=== PATIENT | male | born 1940 | race Caucasian/White ===

== ENCOUNTER 2019-10-01 07:02 | Day surgery (SDC) | payer MEDICARE, BC ==
[2019-09-30 12:39] LABS: BASOPHILS % (AUTO) 0.3 % (0-1); EOSINOPHILS # (AUTO) 0.3 X10'3 (0-0.9); HEMATOCRIT 45.2 % (42.0-52.0); HEMOGLOBIN 15.2 g/dl (14.0-17.9); LYMPHOCYTES # (AUTO) 2.8 X10'3 (1.1-4.8); LYMPHOCYTES % (AUTO) 27.1 % (21-51); MEAN CORPUSCULAR HGB CONC 33.6 g/dL (33.0-36.5); MEAN CORPUSCULAR VOLUME 98.2 FL (78-98); MEAN PLATELET VOLUME 9.1 FL (7.4-10.4); MONOCYTES # (AUTO) 0.9 X10'3 (0-0.9); MONOCYTES % (AUTO) 8.4 % (2-12); NEUTROPHILS # (AUTO) 6.4 X10'3 (1.8-7.7); NEUTROPHILS % (AUTO) 61.2 % (42-75); PLATELET COUNT 244 X10'3 (140-440); WHITE BLOOD COUNT 10.4 X10'3 (4.5-11.0)
[2019-09-30 12:50] LABS: ALBUMIN 4.1 G/DL (3.4-5.0); ANION GAP 8 (8-16); BLOOD UREA NITROGEN 15 MG/DL (7-18); BUN/CREATININE RATIO 16.5 (5.4-32.0); CALCIUM 9.2 MG/DL (8.5-10.1); CHLORIDE 103 MMOL/L (99-107); CREATININE 0.91 MG/DL (0.60-1.10); GLUCOSE 93 MG/DL (70-104); POTASSIUM 4.1 MMOL/L (3.5-5.1); SODIUM 139 MMOL/L (135-145); TOTAL CARBON DIOXIDE 27.9 MMOL/L (24-32); eGFR 81 ML/MIN
[2019-09-30 12:54] LABS: PARTIAL THROMBOPLASTIN TIME 28 SECONDS (22-32)
[2019-10-01] VITALS (11 sets, daily range): BP systolic 119–160; BP diastolic 50–75
[~2019-10-01] VITALS: Ht 177.8 cm; Wt 75.6 kg
[2019-10-01] MEDS ORDERED: diphenhydrAMINE 25mg capsule PO PRN (07:15)
[2019-10-01] MEDS ORDERED: LIDOcaine/PRILOcaine 5gm cream TP ONE (07:15)
[2019-10-01] MEDS ORDERED: normal saline 1,000 ML IV SCH (07:15)
[2019-10-01] MEDS ORDERED: acetylcysteine 200 MG/ml 4ml vial PO PRN (07:20)
[2019-10-01] MEDS ORDERED: LORazepam 0.5 MG tablet PO ONE (08:10)
[2019-10-01] MEDS ORDERED: ALBU8.5H8 IH (08:42)
[2019-10-01] MEDS ORDERED: ATOR10TA70 PO (08:42)
[2019-10-01] MEDS ORDERED: FLUT1AER INH (08:42)
[2019-10-01] MEDS ORDERED: PYRI50TA13 PO (08:42)
[2019-10-01] MEDS ORDERED: CHOL100046 PO (08:42)
[2019-10-01] MEDS ORDERED: SERT-153 PO (08:42)
[2019-10-01] MEDS ORDERED: LISI10TA4 PO (08:42)
[2019-10-01] MEDS ORDERED: CYAN100097 PO (08:42)
[2019-10-01] MEDS ORDERED: LANS30CA56 PO (08:42)
[2019-10-01] MEDS ORDERED: nitroGLYCERIN-Tridil 50MG/D5W 250 ML IV ONE (09:52)
[2019-10-01] MEDS ORDERED: midazolam 2 mg/2 ml injection ONE (09:53)
[2019-10-01] MEDS ORDERED: heparin 1,000unit/ml 10ml vial 10 ML ONE (09:53)
[2019-10-01] MEDS ORDERED: LIDOcaine 1% (10mg/ml)w/preservative injection 20ml MDV ONE (09:53)
[2019-10-01] MEDS ORDERED: iohexol 350MG/ML 100ml bottle IV ONE (09:53)
[2019-10-01] MEDS ORDERED: fentaNYL/PF 50MCG/1 ML 2ML syringe ONE (09:53)
[2019-10-01] MEDS ORDERED: iohexol 350 MG/ML 50ML vial IV ONE (09:53)
[2019-10-01] MEDS ORDERED: verapamil 2.5 mg/ml inj IV ONE (09:53)
[2019-10-01] MEDS ORDERED: normal saline 1000ml 1,000 ML IV SCH (11:15)
== END 2019-10-01 15:48 | disposition home or self-care (01) ==
LOC: SSTAY O 07:02
PROVIDERS: ATTEND Internal Medicine Cardiovascular Disease
DX: R94.39 Abnormal result of other cardiovascular function study (principal); R06.02 Shortness of breath; R53.83 Other fatigue; I25.10 Atherosclerotic heart disease of native coronary artery without angina pectoris; I10 Essential (primary) hypertension; E78.5 Hyperlipidemia, unspecified; J44.9 Chronic obstructive pulmonary disease, unspecified; I08.3 Combined rheumatic disorders of mitral, aortic and tricuspid valves; K21.9 Gastro-esophageal reflux disease without esophagitis; Z85.828 Personal history of other malignant neoplasm of skin; Z85.46 Personal history of malignant neoplasm of prostate; Z98.890 Other specified postprocedural states; Z87.891 Personal history of nicotine dependence; Z79.899 Other long term (current) drug therapy
CPT/HCPCS: 36415; 80048; 85025; 85610; 85730; 93005; 93458; 99152; 99153; C1769; C1894; J1644; J2001; J2250; J3010; J7030; Q0163; Q9967; A4620; A5120; J3490

== ENCOUNTER 2020-05-27 06:08 | Day surgery (SDC) | payer MEDICARE, BC ==
[2020-05-26 11:35] LABS: BASOPHILS % (AUTO) 0.4 % (0-1); EOSINOPHILS # (AUTO) 0.3 X10'3 (0-0.9); EOSINOPHILS % (AUTO) 3.8 % (0-6); HEMATOCRIT 42.2 % (42.0-52.0); HEMOGLOBIN 14.1 g/dl (14.0-17.9); LYMPHOCYTES # (AUTO) 2.5 X10'3 (1.1-4.8); MEAN CORPUSCULAR HEMOGLOBIN 31.7 PG (27.0-31.0); MEAN CORPUSCULAR HGB CONC 33.4 g/dL (33.0-36.5); MEAN PLATELET VOLUME 8.8 FL (7.4-10.4); MONOCYTES # (AUTO) 0.6 X10'3 (0-0.9); MONOCYTES % (AUTO) 6.9 % (2-12); NEUTROPHILS # (AUTO) 5.2 X10'3 (1.8-7.7); NEUTROPHILS % (AUTO) 59.9 % (42-75); PLATELET COUNT 187 X10'3 (140-440); RED BLOOD COUNT 4.45 X10'6 (4.70-6.10); RED CELL DISTRIBUTION WIDTH 13.9 % (11.5-14.5); WHITE BLOOD COUNT 8.6 X10'3 (4.5-11.0)
[2020-05-26 11:40] LABS: ALBUMIN 3.9 G/DL (3.4-5.0); ANION GAP 7 (8-16); BLOOD UREA NITROGEN 18 MG/DL (7-18); BUN/CREATININE RATIO 20.7 (5.4-32.0); CALCIUM 9.1 MG/DL (8.5-10.1); CHLORIDE 107 MMOL/L (99-107); CREATININE 0.87 MG/DL (0.60-1.10); GLUCOSE 125 MG/DL (70-104); SODIUM 142 MMOL/L (135-145); TOTAL CARBON DIOXIDE 27.9 MMOL/L (24-32); eGFR 85 ML/MIN
[2020-05-26 11:44] LABS: PARTIAL THROMBOPLASTIN TIME 26 SECONDS (22-32)
[2020-05-27] VITALS (13 sets, daily range): BP systolic 130–171; BP diastolic 53–76
[~2020-05-27] VITALS: Ht 182.9 cm; Wt 74.8 kg
[~2020-05-27 06:08] MED LIST: ALBU8.5H8 IH; ATOR10TA70 PO; CHOL100046 PO; CYAN100097 PO; FLUT1AER INH; LANS30CA56 PO; LISI10TA27 PO; PYRI-3 PO; SERT-153 PO
[2020-05-27] MEDS ORDERED: ceFAZolin 2gm in dextrose, iso 50 ML IV ONE (06:25)
[2020-05-27] MEDS ORDERED: normal saline 1000ml 1,000 ML IV SCH (06:25)
[2020-05-27] MEDS ORDERED: ZINC50TA60 PO (06:42)
[2020-05-27] MEDS ORDERED: TURM500C4 PO (06:42)
[2020-05-27] MEDS ORDERED: LACT1CAP75 PO (06:42)
[2020-05-27] MEDS ORDERED: MULT-1096 PO (06:42)
[2020-05-27] MEDS ORDERED: AZEL23SP BOTHNARES (06:42)
[2020-05-27] MEDS ORDERED: ASCO1TAB13 PO (06:42)
[2020-05-27] MEDS ORDERED: midazolam 1 mg/ML 2ml injection ONE ×2 (07:17→08:27)
[2020-05-27] MEDS ORDERED: fentaNYL/PF 50MCG/1 ML 2ML syringe ONE (07:17)
[2020-05-27] MEDS ORDERED: ceFAZolin 1000mg inj ONE (07:18)
[2020-05-27] MEDS ORDERED: LIDOcaine 1% W/epiNEPHrine 1:100,000 20ml vial ONE (07:18)
[2020-05-27] MEDS ORDERED: vancomycin/NS 1 GM ADD-VANTAGE 250 ML X 1 DOSE IV ONE (09:55)
[2020-05-27] MEDS ORDERED: HYDROcodone/acetaminophen 10/325mg tab PO PRN (09:55)
[2020-05-27] MEDS ORDERED: HYDROcodone/acetaminophen 5mg/325mg tablet PO PRN (09:55)
== END 2020-05-27 15:03 | disposition home or self-care (01) ==
LOC: SSTAY O 06:08
PROVIDERS: ATTEND Internal Medicine Cardiovascular Disease
DX: I49.5 Sick sinus syndrome (principal); I25.10 Atherosclerotic heart disease of native coronary artery without angina pectoris; E78.5 Hyperlipidemia, unspecified; I10 Essential (primary) hypertension; Z79.899 Other long term (current) drug therapy; K21.9 Gastro-esophageal reflux disease without esophagitis; K22.70 Barrett's esophagus without dysplasia; J44.9 Chronic obstructive pulmonary disease, unspecified; Z85.46 Personal history of malignant neoplasm of prostate; Z85.828 Personal history of other malignant neoplasm of skin; Z98.890 Other specified postprocedural states
CPT/HCPCS: 33208; 36415; 71046; 80048; 85025; 85610; 85730; 93005; 99152; 99153; C1785; C1894; C1898; J0690; J2250; J3010; J3370; J7030; A4565; A4620; A6258; A6449